=== PATIENT | male | born 1970 | race Caucasian/White ===

== ENCOUNTER 2018-03-21 06:57 | Outpatient (CLI) | payer OTHER, SELFPAY ==
[2018-03-21 08:43] LABS: TSH 7.95 uIU/mL (0.358-3.74)
== END 2018-03-21 07:17 ==
PROVIDERS: PCP Family Medicine; Visit Provider Nurse Practitioner Adult Health
DX: C04.9 Malignant neoplasm of floor of mouth, unspecified (principal); E03.9 Hypothyroidism, unspecified; R59.0 Localized enlarged lymph nodes
CPT/HCPCS: 36415; 84443

== ENCOUNTER 2018-04-15 16:57 | Emergency (ER) | payer OTHER, SELFPAY ==
[2018-04-15] VITALS (21 sets, daily range): BP systolic 119–159; BP diastolic 77–105; PULSE 75–94; RESP 1–25; TEMP 36.5; O2SAT 67–100
[2018-04-15] MEDS: Omnipaque 350 MG/ML 100 ML BTL IJ (17:27)
[2018-04-15] MEDS: Normal Saline Flush 10 ML SYR IVP (17:28)
--- NOTE | 2018-04-15 17:29 | DI.CT_ITS ---
SYMPTOMS/DIAGNOSIS: H/O THROAT CANCER, LEFT HARD NECK MASS TODAY, DIFFICULTY BREATHING CT OF THE NECK: The parotid, submandibular and thyroid glands are unremarkable. There is no evidence of abscess or adenopathy. The epiglottis appears normal. No prevertebral soft tissue swelling is seen. Degenerative changes are noted in the cervical spine. Surgical clips are seen bilaterally in the anterior neck.Scattered small calcifications are seen in the upper lobes. There are mild emphysematous changes. IMPRESSION: No evidence of abscess or mass. Postsurgical changes in the anterior neck bilaterally. CT ANGIOGRAPHY OF THE CHEST AND ABDOMEN: CT angiography was performed with multi slice acquisition and multi planar and 3D reconstruction. The exam was performed during the arterial phase. There is no evidence of aortic aneurysm or dissection. The aorta and iliac arteries are normal in diameter.The celiac trunk and mesenteric arteries are patent. The renal arteries are also unremarkable. Calcified granulomas are seen in both lungs and calcified small hilar and mediastinal lymph nodes, indicating old healed granulomatous disease.The pulmonary arteries are not opacified. The lungs are not well evaluated due to respiratory motion. There is a question of a patchy density seen in the left upper lobe, which could represent pneumonitis. No pleural or pericardial effusions are seen. The urinary bladder is quite distended, extending superiorly to the level of the umbilicus. The bladder is not fully included on the exam. The liver, spleen, gallbladder, pancreas, adrenals and kidneys are unremarkable. There is no bowel dilatation. There are no thoracic compression fractures. IMPRESSION: Limited exam due to patient motion. No evidence of aortic dissection. Patchy densities are seen in the left upper lobe, which might represent pneumonitis. The urinary bladder is quite distended to the level of the umbilicus.
[2018-04-15 17:34] LABS: Abs Immature Grans 0.01 k/cumm (0.0-0.09); Absolute Basophil Count 0.09 k/cumm (0.0-0.2); Absolute Eosinophil Count 0.14 k/cumm (0.0-0.7); Absolute Lymphocyte Count 1.48 k/cumm (1.2-3.4); Absolute Neutrophil Count 3.94 k/cumm (1.2-6.7); Basophils % 1.4; Eosinophils % 2.2; HCT 36.8 % (40.0-50.0); HGB 13.1 g/dL (13.5-17.5); Immature Grans % 0.2; Lymphocytes % 22.9; Mean Corp. HGB Concentration 35.6 g/dL (32.0-36.0); Mean Corpuscular Hemoglobin 32.4 pg (27.0-33.0); Mean Corpuscular Volume 91.1 fL (80-95); Mean Platelet Volume 8.5 fL (8.0-11.0); Monocytes % 12.4; Neutrophils % 60.9; Platelet Count 264 x1000/uL (130-400); RBC 4.04 m/cumm (4.50-6.00); RBC Distribution Width 12.1 % (11.8-14.1); White Blood Cell Count 6.46 k/cumm (4.4-10.8)
[2018-04-15 17:37] LABS: ALT 81 U/L (12-78); AST 132 U/L (15-37); Albumin 4.1 g/dL (3.4-5.0); Alkaline Phosphatase 98 U/L (46-116); Anion Gap 13.3 mmol/L (3-11); BUN 5 mg/dL (7-18); Bilirubin, Total 0.4 mg/dL (0.2-1.0); CO2 22.7 mmol/L (21.0-32.0); CREATININE 0.71 mg/dL (0.70-1.30); Calcium 8.6 mg/dL (8.5-10.1); Chloride 91 mmol/L (98-107); Glucose 95 mg/dL (70-100); Potassium 3.8 mmol/L (3.5-5.1); Sodium 127 mmol/L (136-145); Total Protein 7.7 g/dL (6.4-8.2); Troponin I 0.03 ng/mL (0.00-0.06)
[2018-04-15] MEDS: Albuterol/Ipratropium 3 ML UPD VIAL UPD (17:44)
[2018-04-15] MEDS: Normal Saline 500 ML 1000 ML IV (17:44)
--- NOTE | 2018-04-15 18:38 | DI.VRAD_ITS ---
EXAM: CT Neck With Contrast EXAM DATE/TIME: 04/15/2018 5:39 PM CLINICAL HISTORY: 48 years old, male; Signs and symptoms; Dyspnea / difficulty breathing and mass, lump, or swelling in neck; Patient HX: Throat cancer TECHNIQUE: Axial computed tomography images of the neck with intravenous contrast. Coronal and sagittal reformatted images were created and reviewed. COMPARISON: No relevant prior studies available. FINDINGS: Sinuses: Mucosal thickening the left maxillary sinus. Oropharynx: Normal. No significant tonsillar enlargement. Larynx: Normal. Normal epiglottis. Retropharyngeal space: Unremarkable retropharyngeal soft tissues. Parotid glands: Normal. Glands are normal in size. Thyroid: Normal. No enlarged or calcified nodules. Lymph nodes: Calcified and noncalcified lymph nodes within the upper mediastinum. Lungs: Calcified granuloma within the right and left upper lobes. Vasculature: The multiple areas of venous gas, likely iatrogenic. Bones/joints: Mild degenerative spondylosis of the cervical spine. Soft tissues: No neck mass. No abscess. Multiple surgical clips within the right and left neck. IMPRESSION: 1. No neck mass or abscess. 2. Evidence of prior granulomatous disease. 3. Postoperative changes within the right and left neck. Dictated and Authenticated by: Pillo Dickens MD. Ordering:WADE Valera MD
--- NOTE | 2018-04-15 18:38 | NUR.NOTE ---
Nursing Note: Administered IV Valium as ordered by MD. Administered over 4 min IV followed by flush. Patient stated he felt it and became giddy but stated it felt easier to breathe. Patient's oxygen saturations began to drop suddenly down to 68% on RA, despite maintaining good ventilation and speaking to this scribe and his . Attempted different fingers with finger sensor with same reading. Applied NC at 6L with saturations reaching 100% and MD came into room to evaluate. 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 Oxygen titrated down with MD in room, until patient able to maintain a good saturation on RA. Patient monitored on manager monitoring.
--- NOTE | 2018-04-15 18:46 | DI.VRAD_ITS ---
EXAM: CT Angiography Chest With Contrast EXAM DATE/TIME: 04/15/2018 5:14 PM CLINICAL HISTORY: 48 years old, male; Signs and symptoms; Other: Difficulty breathing TECHNIQUE: Axial computed tomographic angiography images of the chest with intravenous contrast using CT angiography protocol. Coronal and sagittal reformatted images were created and reviewed. MIP reconstructed images were created and reviewed. COMPARISON: CT Chest Without Contr 10/06/2014 9:27 AM FINDINGS: Pulmonary arteries: The pulmonary arteries are not opacified. Aorta: Aortic arterial phase imaging was performed. No aortic aneurysm or dissection. Great vessels off aortic arch: The thoracic aorta and origin of the great vessels are unremarkable. Lungs: Multifocal patchy densities within the left upper lobe (axial images 110 through 136 of series 6) are suspicious for pneumonia in the proper clinical setting. An underlying pulmonary malignancy cannot be excluded. Followup CT scan is recommended. Calcified granulomas within both lungs. Pleural space: Normal. No pneumothorax. No pleural effusion. Heart: Normal. No cardiomegaly. No pericardial effusion. Lymph nodes: Calcified and noncalcified hilar and mediastinal lymph nodes. Bones/joints: Unremarkable. No acute fracture. Soft tissues: Unremarkable. IMPRESSION: 1. Patchy densities within the left upper lobe suspicious for pneumonia in the proper clinical setting. Underlying neoplasm is not excluded. Followup CT scan is recommended to confirm resolution following appropriate medical management. 2. Evidence of prior granulomatous disease. 3. Unremarkable thoracic aorta. EXAM: CT Angiography Abdomen With Contrast EXAM DATE/TIME: 04/15/2018 5:14 PM CLINICAL HISTORY: 48 years old, male; Signs and symptoms; Other: Difficulty breathing TECHNIQUE: Axial computed tomographic angiography images of the abdomen with intravenous contrast material, including non-contrast images if performed. MIP and/or 3D reconstructed images were created and reviewed. COMPARISON: CT Chest Without Contr 10/06/2014 9:27 AM FINDINGS: Lungs: Unremarkable. No consolidation. VASCULATURE: Aorta: Mild atherosclerosis of the abdominal aorta. No aneurysm. Celiac trunk and mesenteric arteries: No occlusion or significant stenosis. Renal arteries: No occlusion or significant stenosis. ABDOMEN: Liver: Normal. No mass. Gallbladder and bile ducts: No focal hepatic lesion or intrahepatic duct dilatation. Pancreas: Normal. No ductal dilation. Spleen: Normal. No splenomegaly. Adrenals: Normal. No mass. Kidneys and ureters: Normal. No hydronephrosis. Stomach and bowel: Unremarkable. No obstruction. No mucosal thickening. Intraperitoneal space: Unremarkable. No free air. No significant fluid collection. Bones/joints: No acute fracture. No dislocation. Soft tissues: Unremarkable. Lymph nodes: Unremarkable. No enlarged lymph nodes. IMPRESSION: No acute abdominal abnormality. Dictated and Authenticated by: Pillo Dickens MD. Ordering:WADE Valera MD
--- NOTE | 2018-04-15 19:06 | ED.GENADUL_ITS ---
Discharge Plan Disposition Patient Disposition: HOME Condition: Good Discharge Details Chief Complaint: SOB Clinical Impression: Muscle spasms of neck, Acute torticollis Primary Care Provider: Toan Stanton ED Provider: Soto Manzo Home Meds and New Rx's Prescriptions: New cyclobenzaprine 10 mg tablet 10 mg PO TID Qty: 14 RF: 0 No Action lisinopril 10 mg tablet 10 mg PO DAILY Qty: 90 RF: 4 levothyroxine [Synthroid] 50 MCG tablet 50 mcg PO DAILY RF: 0 ibuprofen 200 MG tablet 200 mg PO BID Qty: 3 RF: 0 sertraline 50 MG tablet 1 tab PO DAILY Qty: 90 RF: 4 Discharge Instructions Instructions: Spasmodic Torticollis (ED) Additional Instructions: Please take the Flexeril only as needed. Please use a heating pad over your neck if your spasm returns. If you notice any worsening of your symptoms, or any new symptoms such as vomiting, diarrhea, fever, chills, shortness of breath, chest pain, numbness, weakness, or fainting , please return immediately to the emergency department for reevaluation. Please follow up with your primary care provider as soon as possible for reassessment and reevaluation. As always, it was a pleasure participating in your medical care today. Referrals: Toan Stanton MD [Primary Care Provider] - Medical Decision Making This is a 48-year-old male with a past medical history of tongue canc er, who had a subsequent glossectomy, as well as radiation, and multiple scars on his left neck. He presents today for difficulty breathing and neck tightness. Patient states that the symptoms began this morning when he awoke. He admits to tightness in the left side of his neck, worsened with movement. Physical exam demonstrates a very normal O2 saturation at 98%, no signs of oropharyngeal compromise, no signs of angioedema or significant swelling. No signs of significant swelling in the neck. No stridorous breath sounds or other abnormalities. Although the patient has the complaint of difficulty breathing and had lateral neck spasm, there is no signs of respiratory distress or airway compromise. We did check a carbon monoxide and this was a normal level. Concern for potential mass, aneurysm, or other significant neck or chest abnormality. We did get a CT angios of the chest and CT of the neck for further evaluation. No acute process is noted in the neck, no large mass, no signs of airway compromise. There are some small areas of mass versus infiltrate the lobes, however the patient states that he is aware of these, and is scheduled to have them followed up at [facility]. He denies any symptoms of fever chills or cough and shows no signs or symptoms clinically consistent with pneumonia. Patient's laboratory workup is come back relatively benign, sodium slightly low at 127, troponin is within normal limits, EKG is benign. Did give the patient a breathing treatment he had no improvement of his symptoms with this. With no clear etiology for his symptoms, I did give a trial of Valium out of concern that perhaps this is a sternocleidomastoid and neck spasm. After administration of the Valium the patient had complete resolution of his symptoms. He is able to move his neck well, had no more pain or tightness, and felt no difficulty breathing. Feel that the patient's spasm of his neck and sternocleidomastoid may have been brought on by mild dehydration and his chronic comorbidities of surgery and radiation to the area. A prolonged observation. Was enabled on the patient, and multiple repeat evaluations were performed which demonstrated continued good oxygen saturation, resolution of symptoms, and good neck movement. The patient made it very clear that he would like to leave immediately as he feels great. I do feel that it is reasonable at this time. We will give the patient Flexeril for home use. Recommend heating pads at home. We discussed red flags which to return the patient understands as well as the importance of close follow-up with his oncologist and PCP. I have extensively reviewed the treatment plan and discharge instructions with the patient and their family. I have addressed all patient concerns at this time. The patient a nd family was made aware of what symptoms to monitor for that would warrant a return to the emergency department. Discussed the plan with the patient and family, they demonstrate verbal understanding and agreement with our assessment and plan at this time. EKG 17: 05 Rate 76, intervals normal, sinus rhythm, no ST elevations or depressions, no T wave inversions. FINDINGS: Sinuses: Mucosal thickening the left maxillary sinus. Oropharynx: Normal. No significant tonsillar enlargement. Larynx: Normal. Normal epiglottis. Retropharyngeal space: Unremarkable retropharyngeal soft tissues. Parotid glands: Normal. Glands are normal in size. Thyroid: Normal. No enlarged or calcified nodules. Lymph nodes: Calcified and noncalcified lymph nodes within the upper mediastinum. Lungs: Calcified granuloma within the right and left upper lobes. Vasculature: The multiple areas of venous gas, likely iatrogenic. Bones/joints: Mild degenerative spondylosis of the cervical spine. Soft tissues: No neck mass. No abscess. Multiple surgical clips within the right and left neck. IMPRESSION: 1. No neck mass or abscess. 2. Evidence of prior granulomatous disease. 3. Postoperative changes within the right and left neck. Thank you for allowing us to participate in the care of your patient. Dictated and Authenticated by: Pillo Dickens MD FINDINGS: Pulmonary arteries: The pulmonary arteries are not opacified. Aorta: Aortic arterial phase imaging was performed. No aortic aneurysm or dissection. Great vessels off aortic arch: The thoracic aorta and origin of the great vessels are unremarkable. Lungs: Multifocal patchy densities within the left upper lobe (axial images 110 through 136 of series 6) are suspicious for pneumonia in the proper clinical setting. An underlying pulmonary malignancy cannot be excluded. Followup CT scan is recommended. Calcified granulomas within both lungs. Pleural space: Normal. No pneumothorax. No pleural effusion. Heart: Normal. No cardiomegaly. No pericardial effusion. Lymph nodes: Calcified and noncalcified hilar and mediastinal lymph nodes. Bones/joints: Unremarkable. No acute fracture. Soft tissues: Unremarkable. IMPRESSION: 1. Patchy densities within the left upper lobe suspicious for pneumonia in the proper clinical setting. Underlying neoplasm is not excluded. Followup CT scan is recommended to confirm resolution following appropriate medical management. 2. Evidence of prior granulomatous disease. 3. Unremarkable thoracic aorta. FINDINGS: Lungs: Unremarkable. No consolidation. VASCULATURE: Aorta: Mild atherosclerosis of the abdominal aorta. No aneurysm. Celiac trunk and mesenteric arteries: No occlusion or significant stenosis. Renal arteries: No occlusion or significant stenosis. ABDOMEN: Liver: Normal. No mass. Gallbladder and bile ducts: No focal hepatic lesion or intrahepatic duct dilatation. Pancreas: Normal. No ductal dilation. Spleen: Normal. No splenomegaly. Adrenals: Normal. No mass. Kidneys and ureters: Normal. No hydronephrosis. Stomach and bowel: Unremarkable. No obstruction. No mucosal thickening. Intraperitoneal space: Unremarkable. No free air. No significant fluid collection. Bones/joints: No acute fracture. No dislocation. Soft tissues: Unremarkable. Lymph nodes: Unremarkable. No enlarged lymph nodes. IMPRESSION: No acute abdominal abnormality. Thank you for allowing us to participate in the care of your patient. Dictated and Authenticated by: Pillo Dickens MD [facility] General Date/Time Provider Initiated Documentation: 04/15/18 17:12 . HPI Narrative: This is a 48-year-old male with a past medical history complicated by lung cancer, with subsequent glossectomy, and multiple surgeries on his neck including radiation and chemotherapy that occurred greater than a year ago. He presents today for complaint of tightness in his neck, cramp in his left neck, and sensation of difficulty breathing. Patient states that symptoms began when he woke up this morning. If continued throughout the day, over the last hour he feels like it is getting worse. It is worse when he tries to stretch his neck. Improved by nothing. He denies any associated chest pain, headache, numbness tingling or weakness. He denies any difficulty swallowing, controlling his secretions, he denies any vomiting or diarrhea. He denies any other complaints. He denies any cardiac history, he denies any other associated complaints. Related Data Home Medications Medication Instructions Recorded Confirmed ibuprofen 200 mg PO BID #3 09/16/16 04/15/18 levothyroxine [Synthroid] 50 mcg PO DAILY tab-cap 09/16/16 04/15/18 sertraline 1 tab PO DAILY #90 tab-cap 09/19/17 04/15/18 lisinopril 10 mg tablet 10 mg PO DAILY #90 tab 04/12/18 04/15/18 cyclobenzaprine 10 mg PO TID #14 tab 04/15/18 Previous Rx's Medication Instructions Recorded sertraline 1 tab PO DAILY #90 tab-cap 09/19/17 lisinopril 10 mg tablet 10 mg PO DAILY #90 tab 04/12/18 cyclobenzaprine 10 mg PO TID #14 tab 04/15/18 Allergies Allergy/AdvReac Type Severity Reaction Status Date / Time No Known Allergies Allergy Verified 04/15/18 17:09 General Stated Complaint: SOB JENSEN: 2 Review of Systems Review of Systems All systems reviewed & are unremarkable except as noted in HPI and below PFSH Surgical History Appendectomy (~1980) Family History Mother No problems noted. Father No problems noted. Sister Personal history of malignant neoplasm Sister Personal history of malignant neoplasm Brother No problems noted. Brother No problems noted. Grandfather Heart disease Grandfather No problems noted. Grandmother No problems noted. Grandmother No problems noted. Exam Narrative Exam Narrative: 1.Const: Well-nourished, Well-developed, appearing stated age 2.Eyes: PERRL, no conjunctival injection, and symmetrical lids. 3.ENT: Patient demonstrates notable abnormalities of his tongue secondary to glossectomy. Notable chronic scars on his left neck. Palpation of his left neck demonstrate notable spasm intense sternocleidomastoid and lateral neck musculature. No signs of oral/parapharyngeal compromise, no evidence of hyper secretions, angioedema, uvular deviation, or other significant abnormality. 4.CVS: +S1/S2, No murmurs or gallops. Peripheral pulses 2+ and equal in all extremities. Brisk capillary refill in all extremities. 5.RESP: Unlabored respiratory effort. Clear to auscultation bilaterally. No wheezes rales or rhonchi 6.GI: Soft, Nontender/Nondistended, No hepatosplenomegaly. No guarding or rebound. 7.MSK: Normocephalic/Atraumatic, Extremities w/o deformity or ttp No cyanosis or clubbing, Normal movement of all extremities 8.Skin: Warm, Dry. No rashes or lesions. 9.Neuro: orthopedic physician assistant II-XII grossly intact. Sensation grossly intact, no focal neuro logic deficits. 10.Psych: (AAO) x3. Appropriate mood and affect Course Vital Signs Temperature 36.5 C 04/15/18 17:07 Pulse 81 04/15/18 17:07 Respiratory Rate 18 04/15/18 17:07 Blood Pressure 147/95 H 04/15/18 17:07 Pulse Oximetry 99 04/15/18 17:07 Temperature 36.5 C 04/15/18 17:07 Temperature Source Skin 04/15/18 17:07 Pulse 81 04/15/18 17:07 Respiratory Rate 18 04/15/18 17:07 Blood Pressure 147/95 H 04/15/18 17:07 Pulse Oximetry 99 04/15/18 17:07 Oxygen Delivery Method Room Air 04/15/18 17:07 Oxygen Flow Rate 0 04/15/18 17:07
--- NOTE | 2018-04-15 19:11 | NUR.NOTE ---
Nursing Note: Pt ambulated with this nurse to the ED rear door and back, RA saturation post ambulation 95%. Alert, oriented, no SOB noted or reported.
== END 2018-04-15 19:30 | disposition home or self-care (01) ==
PROVIDERS: Emergency Provider Student in an Organized Health Care Education/Training Program; PCP Family Medicine
DX: M62.838 Other muscle spasm (principal); M43.6 Torticollis; F17.210 Nicotine dependence, cigarettes, uncomplicated
CPT/HCPCS: 70491; 71275; 80053; 93005; 94640; 96361; 96374; 99285; 84484; 85025; 93010; J3490; J7620

== ENCOUNTER 2018-05-28 14:39 | Outpatient (CLI) | payer OTHER, SELFPAY ==
[2018-05-28 15:58] LABS: CREATININE 0.86 mg/dL (0.70-1.30); TSH 3.45 uIU/mL (0.358-3.74)
== END 2018-05-28 14:59 ==
PROVIDERS: PCP Family Medicine; Visit Provider Nurse Practitioner Adult Health
DX: R59.0 Localized enlarged lymph nodes (principal); C04.9 Malignant neoplasm of floor of mouth, unspecified; E03.9 Hypothyroidism, unspecified; R91.8 Other nonspecific abnormal finding of lung field; E03.4 Atrophy of thyroid (acquired)
CPT/HCPCS: 36415; 82565; 84443

== ENCOUNTER 2018-06-13 00:19 | Outpatient (CLI) | payer OTHER, SELFPAY ==
--- NOTE | 2018-05-28 15:00 | DI.CT_ITS ---
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 When compared with the previous examination, again noted are pulmonary findings consistent with central lobular emphysema. Again noted are multiple calcified and noncalcified pulmonary nodules, which appear stable. There is no evidence of a pleural effusion or pericardial effusion and the heart is within normal limits in size. Calcified hilar and mediastinal lymph nodes are again seen. A 1.7 cm right partially calcified paratracheal node is unchanged. SUMMARY: No significant interval change when compared with the prior study. Again noted are bilateral lung nodules, some of which are calcified and there are calcified hilar and mediastinal lymph nodes, these findings consistent with old healed granulomatous disease. There is nothing to suggest metastatic disease.
[2018-05-28] MEDS: Omnipaque 350 MG/ML 100 ML BTL IJ (15:56)
== END 2018-06-13 00:39 ==
PROVIDERS: PCP Family Medicine; Visit Provider Nurse Practitioner Adult Health
DX: C04.9 Malignant neoplasm of floor of mouth, unspecified (principal); R03.0 Elevated blood-pressure reading, without diagnosis of hypertension; Z87.891 Personal history of nicotine dependence; R91.8 Other nonspecific abnormal finding of lung field; J43.9 Emphysema, unspecified; J84.10 Pulmonary fibrosis, unspecified
CPT/HCPCS: 71260; J3490

== ENCOUNTER 2018-12-05 12:21 | Outpatient (CLI) | payer OTHER, SELFPAY ==
[2018-12-05 13:04] LABS: TSH 4.98 uIU/mL (0.36-3.74)
== END 2018-12-05 12:41 ==
PROVIDERS: PCP Family Medicine; Visit Provider Nurse Practitioner Adult Health
DX: C04.9 Malignant neoplasm of floor of mouth, unspecified (principal); E03.9 Hypothyroidism, unspecified; R59.0 Localized enlarged lymph nodes; R91.8 Other nonspecific abnormal finding of lung field
CPT/HCPCS: 36415; 84443

== ENCOUNTER 2020-03-12 02:35 | Outpatient (CLI) | payer OTHER, SELFPAY ==
[2020-03-13 13:40] LABS: COVID-19 RT-PCR UVMMC Result Negative (Negative)
== END 2020-03-12 02:55 ==
PROVIDERS: PCP Family Medicine; Visit Provider Surgery
DX: Z20.828 Contact with and (suspected) exposure to other viral communicable diseases (principal); Z01.818 Encounter for other preprocedural examination
CPT/HCPCS: U0003

== ENCOUNTER 2020-03-16 07:16 | Day surgery (SDC) | payer OTHER, SELFPAY ==
--- NOTE | 2020-03-16 06:47 | COLE_ITS ---
Date of service: 03/16/20 Time of Service: 08: Colonoscopy Report Date of procedure: 03/16/20 Pre-op diagnosis general: Colon Cancer Screening Post-op diagnosis procedure note: same Procedure: Colonoscopy Surgeon: Sully Awad Anesthesia proc note operative: other (General/ASA 2/Bc Tijerina, ROSY) Estimated blood loss (mL): 0 Pathology: none sent Complications: None Disposition: same day Indications: The patient is here for Colonoscopy pre-op. He has no family history of colon cancer. He has not had any bowel habit changes. -Discussed colonoscopy bowel prep as well as the procedure. Discussed possible complications of the procedure to include bleeding, pain, perforation, missed small lesion/polyp, sore throat, aspiration and adverse reaction to the medications. Questions were answered to patient?s satisfaction. No guarantees were implied or given. Prep: Miralax/Dulcolax Procedure Start Time: : Procedure End Time: :43 Retraction Time: 12 minutes Findings: Normal colon Procedure Description: After informed consent was obtained the patient was taken to the procedure room and placed in a left decubitous position. Monitors were applied and a time out was done. The patients name, date of , procedur e, allergies to medications and metal in their body was reviewed. The patient was then sedated. Once sedated and comfortable a rectal exam was done. External exam revealed an external hemorrhoidal skin tag. Internal exam revealed a normal sphincter tone and no palpable masses. The prostate felt smooth and slightly enlarged. The scope was then introduced and retro-flexed. No internal hemorrhoids, polyps or masses were identified on retro-flexion. The scope was then advanced to the cecum without difficulty. The ileocecal valve and appendiceal orifice were identified. The prep was good. The scope was then slowly retracted over 12 minutes back into the rectum. There were no polyps. There was no diverticulosis noted. The scope was removed and the patient was woken up and taken back to Same day surgery in stable condition. The patient tolerated the procedure well and there were no immediate complications. Follow up: The patient should follow up in 10 years unless they develop changes in bowel habits or other new gastrointestinal complaints.
--- NOTE | 2020-03-16 06:47 | W.PM.DSUDISC ---
Discharge Plan Disposition Patient Disposition: HOME Condition: Good Discharge Details Reason For Visit: Colon Cancer Screening Attending Provider: Sully Awad Primary Care Provider: Blaze Ratliff Home Meds and New Rx's Prescriptions: Continued levothyroxine [Synthroid] 50 mcg tablet 50 mcg PO DAILY Qty: 90 RF: 4 lisinopril 10 mg tablet 10 mg PO DAILY Qty: 90 RF: 4 chlorthalidone 25 mg tablet 25 mg PO DAILY Qty: 90 RF: 4 ibuprofen 200 MG tablet 200 mg PO BID Qty: 3 RF: 0 Discharge Instructions Additional Instructions: Findings: Normal colonoscopy Follow up: 10 years Please call if you develop: fevers >101.5 Nausea or Vomiting Abdominal pain that is not transient DAY SURGERY UNIT POST ENDOSCOPY INSTRUCTIONS 1. Because there will be medication in your system for the next 24 hours, you may feel a little sleepy. Your coordination will be affected. Therefore: a. Do not drive or operate dangerous equipment for 24 hours. b. Do not drink alcohol beverages for 24 hours (not even beer). c. Plan to go home and rest for the day. 2. Generally there are no restrictions on your activity after a day or so has gone by, but you may feel a bit fatigued for a few days. 3 After you arrive home you may have a light meal and return to a normal diet as you can tolerate it without feeling sick to your stomach. 4. After surgery, you may feel pain or discomfort. This should be only transient, but if it persists please contact your doctor. 5. If there are any questions regarding the findings of your procedure, please feel free to contact your doctor. 6. If you are unable to contact your doctor with a problem, contact the hospital at [phone]. 7. Continue all your regular medications unless directed otherwise. I understand the above instructions and have no questions. Signature of Patient or Responsible Adult Escort Date/Time Name of Responsible Adult Escort Signature of Nurse Date/Time Activity:: Activity as Tolerated Diet:: As Tolerated Discharge Orders Discharge Orders: Discharge Order (Routine); Ordered 03/16/20 Ordered By: Sully Awad
[2020-03-16 07:37] VITALS: BP 141/101; PULSE 125; RESP 16; TEMP 36.5; O2SAT 99
[2020-03-16] MEDS: Lactated Ringers 1,000 ML 80 ML IV (08:04)
[2020-03-16 09:26] VITALS: BP 128/98; PULSE 96; RESP 16; TEMP 37; O2SAT 100
== END 2020-03-16 09:48 | disposition home or self-care (01) ==
LOC: SUR 07:16
PROVIDERS: PCP Family Medicine; Visit Provider Surgery
PROC: 0DJD8ZZ Inspection of Lower Intestinal Tract, Via Natural or Artificial Opening Endoscopic (ICD-10-PCS; CPT 45378; principal; 2020-03-16 08:30)
DX: Z12.11 Encounter for screening for malignant neoplasm of colon (principal)
CPT/HCPCS: 45378

== ENCOUNTER 2021-03-01 02:12 | Outpatient (CLI) | payer OTHER, SELFPAY ==
[2021-03-01 08:26] LABS: Anion Gap 10.5 mmol/L (3-11); BUN 9 mg/dL (7-18); CO2 29.5 mmol/L (21.0-32.0); CREATININE 1.2 mg/dL (0.70-1.30); Calcium 9.3 mg/dL (8.5-10.1); Calculated LDL 67 mg/dL (<100); Chloride 95 mmol/L (98-107); Cholesterol 180 mg/dL (<200); Glucose 79 mg/dL (74-106); HDL Cholesterol 102 mg/dL (40-60); Potassium 3.9 mmol/L (3.5-5.1); Sodium 135 mmol/L (136-145); TSH (W/Ref FT4) 32.41 uIU/mL (0.36-3.74); Triglyceride 55 mg/dL (<150)
[2021-03-01 08:46] LABS: FREE T4 0.67 ng/dL (0.76-1.46)
[2021-03-01 18:20] LABS: PSA, Screening 3.7 ng/mL (0.0-3.5)
[2021-03-02 10:11] LABS: Hepatitis C Ab w Rflx HCV PCR Negative (Negative)
== END 2021-03-01 02:13 | disposition home or self-care (01) ==
LOC: LBO 02:12
PROVIDERS: PCP Family Medicine; Visit Provider Family Medicine
DX: I10 Essential (primary) hypertension (principal); Z00.00 Encounter for general adult medical examination without abnormal findings; Z12.5 Encounter for screening for malignant neoplasm of prostate; E03.9 Hypothyroidism, unspecified; Z11.59 Encounter for screening for other viral diseases
CPT/HCPCS: 36415; 80048; 80061; 84153; 86803; 84439; 84443

== ENCOUNTER 2021-10-08 00:11 | Outpatient (CLI) | payer OTHER, SELFPAY ==
[2021-10-08 14:32] LABS: Abs Immature Grans 0.03 10^3/uL (0.0-0.06); Absolute Basophil Count 0.06 10^3/uL (0.0-0.2); Absolute Eosinophil Count 0.16 10^3/uL (0.0-0.7); Absolute Monocyte Count 0.73 10^3/uL (0.1-0.8); Absolute Neutrophil Count 2.71 10^3/uL (1.2-6.7); Basophils % 1.4; Eosinophils % 3.6; HCT 34.9 % (40.0-50.0); HGB 12.5 g/dL (13.5-17.5); Immature Grans % 0.7; Lymphocytes % 15.9; MCH 33.9 pg (27.0-33.0); MCHC 35.8 % (32.0-36.0); MCV 95 fL (80-95); MPV 8.2 fL (8.0-11.0); Monocytes % 16.6; Neutrophils % 61.8; Platelet Count 285 10^3/uL (130-400); RBC 3.69 10^6/uL (4.36-5.78); RDW 12.9 % (11.8-14.1); RDW-SD 44.5 fL; WBC 4.39 10^3/uL (4.4-10.8)
[2021-10-08 14:42] LABS: Hemoglobin A1C 5.1 % (<5.7)
[2021-10-08 15:12] LABS: ALT 32 U/L (16-63); AST 44 U/L (15-37); Albumin 4.3 g/dL (3.4-5.0); Alkaline Phosphatase 89 U/L (46-116); Anion Gap 11.6 mmol/L (3-11); BUN 10 mg/dL (7-18); Bilirubin, Total 0.5 mg/dL (0.2-1.0); CO2 29.4 mmol/L (21.0-32.0); CREATININE 1.2 mg/dL (0.70-1.30); Calcium 9.3 mg/dL (8.5-10.1); Chloride 85 mmol/L (98-107); Glucose 96 mg/dL (74-106); Potassium 3.2 mmol/L (3.5-5.1); Sodium 126 mmol/L (136-145); TSH (W/Ref FT4) 8.47 uIU/mL (0.36-3.74); Total Protein 8.4 g/dL (6.4-8.2); Vitamin B12 284 pg/mL (193-986)
[2021-10-08 15:21] LABS: Bilirubin Negative (Negative); Blood Negative (Negative); Clarity Clear (Clear); Glucose Negative (Negative); Ketones Negative (Negative); Leukocyte Esterase Negative (Negative); Nitrite Negative (Negative); Specific Gravity 1.015 (1.005-1.025); Urobilinogen 0.2 EU/dL (Up TO 0.2)
[2021-10-08] MEDS: Omnipaque 350 MG/ML 100 ML BTL IJ (15:21)
--- NOTE | 2021-10-08 15:21 | DI.CT_ITS ---
Exam(s) CT NECK W EXAM: CT NECK W CLINICAL HISTORY: RADIONECROSIS,L59.8,Y84.2,S/P SURGERY AND RECONSTRUCTION AND RADIATION. TECHNIQUE: Imaging Protocol: Axial CT angiography was performed with multi-slice acquisition and mu lti-planar and/or 3D reconstructions. CONTRAST MATERIAL: Intravenous: Omnipaque 350 Contrast volume:100 mL COMPARISON: CT CT neck w from 04/15/2018 FINDINGS: VISUALIZED PARANASAL SINUSES: There is mild mucosal thickening in the floor of the partially visualiz ed left maxillary sinus. The sphenoid sinuses are clear as are the ethmoidal air cells. Mastoid air cells are clear. NASOPHARYNX: Unremarkable. OROPHARYNX: Slightly thickened uvula of questionable significance. No other masses evident. ORODENTAL: Significant area of lucency in the anterior mandible with loss of the central and left kianna th. Also some bone dehiscence of the anterior cortex of the anterior mandible at this level. No obv ious abscess at this level. RETROPHARYNGEAL SPACE: Not swollen. No masses. HYPOPHARYNX: Free edge of the epiglottis and valleculae appear unremarkable. Aryepiglottic folds unr emarkable. VOCAL CORDS AND SUBGLOTTIC AIRWAY: Unremarkable although there appears to be some mucus on the associate brand manager ior right wall of the trachea. THYROID GLAND: Normal size and no obvious nodules. LYMPH NODES: There is no prominent lymphadenopathy in the neck. Small lymph nodes are noted in the s upraclavicular regions bilaterally. SALIVARY GLANDS: The submandibular glands are surgically absent. No abnormal masses in these regions . No masses nor calcifications noted in the parotid glands. VASCULAR: Heavily calcified plaque in the proximal left internal carotid artery with approximately 40 percent stenosis at this level. No calcified plaque at the right carotid bifurcation and proximal r ight ICA and no significant stenosis. Right internal jugular vein is patent. Left internal jugular vein is thin in the upper neck but does not appear thrombosed. OSSEOUS: No lytic nor blastic osseous lesions. Cervical vertebrae appear unremarkable. No significa nt disc space narrowing. No listhesis. No fractures. IMPRESSION: 1. Postsurgical changes as described above but no evidence of concerning mass nor new lymphadenopathy in the neck. Submandibular glands are again noted to have been resected. 2. Significant lucency around central and left central teeth in the anterior mandible with bone loss at this level including dehiscence of the anterior cortex of the mandible at this level. 3. Slight thickening of the uvula at level the oropharynx. This can be studied visually. RADIATION DOSE DELIVERED: 417.87mGy.cm Total DLP DATA REPOSITORY: All CT scans at this facility are submitted to the National Radiology Data Registry (NRDR) Dose Index Registry (DIR) with the [employer] (ACR). RADIATION OPTIMIZATION: All CT scans at this facility use at least one of these dose optimization te chniques: automated exposure control; mA and/or kV adjustment per patient size (includes targeted exa ms where dose is matched to clinical indication); or iterative reconstruction.
[2021-10-08] MEDS: Normal Saline Flush 10 ML SYR IVP (15:22)
[2021-10-08 15:33] LABS: FREE T4 0.88 ng/dL (0.76-1.46)
[2021-10-08 22:31] LABS: PSA, Diagnostic 2.7 ng/mL (<=3.5)
[2021-10-11 13:24] LABS: Albumin 59.9 % (55.8-66.1); Albumin g/dL 4.7 g/dL (3.6-5.2); Total Protein 7.8 g/dL (6.3-8.2)
== END 2021-10-08 00:31 ==
LOC: DI 00:11
PROVIDERS: Psychiatry & Neurology Neurology; PCP Family Medicine; Visit Provider Otolaryngology Otolaryngology/Facial Plastic Surgery
DX: I10 Essential (primary) hypertension (principal); Z00.00 Encounter for general adult medical examination without abnormal findings; R20.2 Paresthesia of skin; R97.20 Elevated prostate specific antigen [PSA]; E03.9 Hypothyroidism, unspecified; G62.9 Polyneuropathy, unspecified; R73.9 Hyperglycemia, unspecified; L59.8 Other specified disorders of the skin and subcutaneous tissue related to radiation; Y84.2 Radiological procedure and radiotherapy as the cause of abnormal reaction of the patient, or of later complication, without mention of misadventure at the time of the procedure; Z90.89 Acquired absence of other organs; M26.39 Other anomalies of tooth position of fully erupted tooth or teeth; K13.79 Other lesions of oral mucosa
CPT/HCPCS: 70491; 80053; 81003; 82607; 83036; 84153; 84165; 84439; 84443; 85025; J3490

== ENCOUNTER 2021-12-15 09:15 | Day surgery (SDC) | payer OTHER, SELFPAY ==
--- NOTE | 2021-12-15 07:47 | PDOC.DSDIS_ITS ---
Date of service: 12/15/21 Time of Service: 12:31 Discharge Plan Disposition Patient Disposition: HOME Condition: Good Discharge Details Reason For Visit: Right Middle Finger Trigger Release and Right ECTR Attending Provider: Cali Dominguez Primary Care Provider: Maritza Kang Home Meds and New Rx's Prescriptions: New acetaminophen 500 mg capsule 1,000 mg PO Q8H PRN PRNQty: 20 0RF hydrocodone-acetaminophen 5-325 mg tablet 1 tab PO Q6H PRNQty: 5 0RF ibuprofen 600 mg tablet 600 mg PO TID Qty: 20 0RF Continued ibuprofen 200 MG tablet 200 mg PO BID Qty: 3 levothyroxine [Synthroid] 50 mcg tablet 50 mcg PO DAILY Qty: 90 0RF lisinopril 10 mg tablet 10 mg PO DAILY Qty: 90 3RF Discharge Instructions Stand Alone Forms: [place] C. Tunnel Release, [place] T. Finger Release Referrals: Cali Dominguez MD [ [facility] STAFF PHYSICIAN] - Activity:: Activity as Tolerated Remove Dressings/Wound Care:: 72 hours Shower/Bathe:: 72 hours Diet:: As Tolerated Discharge Orders Discharge Orders: Discharge Order (Routine); Ordered 12/15/21 Ordered By: Nichole Subramanian DS: Diagnosis Discharge Diagnosis (1) Carpal tunnel syndrome of right wrist: Status: Acute (2) Trigger finger, right middle finger: Status: Acute
[2021-12-15 09:52] VITALS: BP 144/118; PULSE 118; RESP 18; TEMP 35.9; O2SAT 98
[2021-12-15] MEDS: Lactated Ringers 1,000 ML 80 ML IV (10:03)
--- NOTE | 2021-12-15 10:53 | W.ANESPRE ---
General Info Date of Service Date Performed: 12/15/21 Height: 5 ft 1 in Weight: 66.8 kg Body Mass Index (BMI): 27.8 Surgical Procedure: Operation Date: 12/15/21 12:40 Proposed Procedure Side Surgeon p Wrist ECTR Right Cali Dominguez MD s Trigger Finger Release RMF Right Cali Dominguez MD Meds Allergies and Home Medications Allergies Allergy/AdvReac Type Severity Reaction Status Date / Time No Known Allergies Allergy Verified 11/15/21 08:39 Home Medication Medication Instructions Recorded ibuprofen 200 mg tablet 200 mg PO BID ##3 09/16/16 levothyroxine 50 mcg tablet 50 mcg PO DAILY #90 tab-caps 09/20/21 (Synthroid) lisinopril 10 mg tablet 10 mg PO DAILY #90 tabs 10/25/21 acetaminophen 500 mg capsule 1,000 mg PO Q8H PRN PRN #20 caps 12/15/21 hydrocodone 5 mg-acetaminophen 325 1 tab PO Q6H PRN #5 tabs 12/15/21 mg tablet ibuprofen 600 mg tablet 600 mg PO TID #20 tabs 12/15/21 Current Visit Medications: Current Medications Generic Name Dose Route Start Last Admin Trade Name Freq PRN Reason Stop Dose Admin Acetaminophen 650 mg 12/15/21 07:46 Acetaminophen 325 Mg Tab PO Q4H PRN PRN Ringer's Solution 1,000 mls @ 80 mls/hr 12/15/21 06:00 12/15/21 10:03 IV 01/13/22 23:59 80 mls/hr INFUSION OLYA Administration Cefazolin Sodium/Dextrose 2 gm in 50 mls @ 100 mls/hr 12/15/21 06:00 Ancef Duplex IVPB 01/13/22 23:59 PREOP OLYA Ondansetron HCl 4 mg/ Sodium 52 mls @ 200 mls/hr 12/15/21 07:46 Chloride IVPB Q6H PRN PRN IV Miscellaneous Supplies 1 each 12/15/21 06:00 Iv Access IV 01/13/22 23:59 DIRECTED OLYA Oxycodone HCl 5 mg 12/15/21 07:46 Oxycodone 5 Mg Tab PO Q3H PRN PRN Pain Sodium Chloride 0 ml 12/15/21 06:00 Normal Saline Flush 10 Ml Syr IV 01/13/22 23:59 PRN PRN Sodium Chloride 0 ml 12/15/21 06:00 Normal Saline 10 Ml Vial IJ 01/13/22 23:59 DIRECTED PRN Sterile Water 0 ml 12/15/21 06:00 Water,Injection,Sterile 10 Ml Vial IJ 01/13/22 23:59 DIRECTED PRN PFSH Active Problems Active Problems: Problem Status Onset Code Alcohol abuse 06/25/13 F10.10 Primary insomnia 10/04/16 F51.01 Essential hypertension I10 Hypothyroid E03.9 Sensorineural hearing loss (SNHL) of both ears H90.3 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 Elevated prostate specific antigen (PSA) R97.20 Trigger finger, right middle finger M65.331 Peripheral neuropathy G62.9 Carpal tunnel syndrome of left wrist G56.02 Carpal tunnel syndrome of right wrist G56.01 Ulnar neuropathy at elbow of left upper extremity G56.22 Ulnar neuropathy at elbow of right upper extremity G56.21 Vitamin B12 deficiency E53.8 Medical History Medical History (Updated 12/15/21 @ 09:50 by Leyla Resendiz RN) Family history of breast cancer in female Hypertension 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 Status post appendectomy Tobacco Smoking/Tobacco Use Status: Former Tobacco Use Smokeless tobacco user: snuff Passive smoking exposure: Yes Second hand exposure: Yes Alcohol Alcohol Intake: current Alcohol intake frequency: 3 or more drinks per day (4 drinks per day per patient to ANES provider) Alcohol type: beer Counseling provided: provider counseling Substance Use Substance use: Never Substance use type: does not use Details: Last ETOH 12/15/21 Vital Signs and Lab Results Vital Signs Most Recent Vital Signs in EMR: Most Recent Vital Signs Temp Pulse Resp BP Pulse Ox 35.9 C L 118 H 18 144/118 H 98 12/15/21 09:52 12/15/21 09:52 12/15/21 09:52 12/15/21 09:52 12/15/21 09:52 Lab Results Blood Type / Crossmatch: No Data to Display Complete Blood Count: No Data to Display Complete Metabolic Panel: No Data to Display Liver Function Panel: No Data to Display Coagulation Panel: No Data to Display Cardiac Panel: No Data to Display Arterial Blood Gas: No Data to Display Venous Blood Gas: No Data to Display Pancreas Panel: No Data to Display Thyroid Panel: No Data to Display Infectious Disease: No Data to Display Blood Cultures: No Data to Display Toxicology Panel: No Data to Display Anesthesia Assessment and Plan Anesthesia History Personal History: No History of Anesthesia Complications and Awareness Under Anesthesia Family History: No Family History of Anesthesia Complications Exercise Tolerance Exercise Tolerance: Metabolic Equivalents>4 Pertinent Negatives Pertinent Negatives: No Symptoms of GERD, No Major Cardiovascular Symptoms or Complaints, No Major Pulmonary Symptoms or Complaints and No History of CVA/TIA Cardiac & Pulmonary Exam Cardiac Exam: Normal S1/S2 Heart Sounds Pulmonary Exam: Clear Bilateral Breath Sounds Implantable Cardiac Device Does patient have a Pacemaker or an ICD?: No Airway Exam Known Difficult Airway: No Mallampati Class: 2 Mouth Opening: Normal (> 3cm) Thyromental Distance: Less than 3 cm Neck Range of Motion: Full ROM Neck Circumference: Normal Teeth Condition: Generalized Poor Dentition and Loose or Chipped Tooth Numberin. Missing 2. Loose Airway Comments: Significant radiation to the head and neck with resection of tongue. Patient demonstated good cervical flexion and extension, limited tongue ROM. MP2. Patient notes losing teeth to the lower jaw. one molar loose at this time. ASA Classification ASA Score: ASA 3 Emergency Case?: No NPO Status NPO Status: NPO Clears >2 hours, Solids >8 hours Anesthesia Plan Resuscitation Status: Full Code Anesthesia Technique: General Anesthesia Airway Planned: Natural Airway Monitors Used: Standard Monitors
--- NOTE | 2021-12-15 11:26 | HPE_ITS ---
Assessment and Plan Assessment and plan (1) Trigger finger, right middle finger: Status: Acute (2) Carpal tunnel syndrome of right wrist: Status: Acute (3) Carpal tunnel syndrome of left wrist: Status: Acute Assessment and plan: Faiza a 51-year-old who is here today for bilateral carpal tunnel syndrome and a right middle finger trigger finger. The plan today is for a right carpal tunnel release and a right middle finger trigger finger release. He will come back in 2 weeks for the left side. I reviewed carpal tunnel and trigger finger release with him. I discussed the risk of the procedure to include bleeding, infection, pain, stiffness, recurrence, incomplete release, damage nerves and vessels, damage to muscle and tendons. Despite these risk, he elects to proceed. History of Present Illness Narrative: Silvano is a 51-year-old who has severe carpal tunnel syndrome of both upper extremities. He also has recurrent trigger finger of the right middle finger. Please see the previous office note for complete detailed history. He has failed other nonoperative options and is here today for release of the carpal tunnel on the right side with middle finger trigger release. He is planning to have the left carpal tunnel performed in a few weeks. He denies any recent sick contacts. He denies chest pain or shortness of breath. He has no fever no chills. Review of Systems All systems reviewed & are unremarkable except as noted in HPI and below PFSH All Active Problems Alcohol abuse (Chronic 06/25/13) 6 beers / night x 30 years. Primary insomnia (Chronic 10/04/16) no improvement with trazodone, ambien. 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 Status post appendectomy Family History Father , 87 Bone cancer Sister Personal history of malignant neoplasm BREAST Sister Personal history of malignant neoplasm BREAST Grandfather Heart disease Social History Smoking/Tobacco Use Status: Former Tobacco Use tobacco type: cigarettes and smokeless tobacco Quit Date: 02/13/13 Pack-years: 10 Smokeless tobacco user: snuff Second Hand Exposure: Yes Smoking risk assessment performed?: Yes Alcohol Intake: current Alcohol Intake frequency: 3 or more drinks per day (4 drinks per day per patient to ANES provider) Alcohol type: beer Counseling provided: provider counseling Drug use: Never Substance use type: does not use Details: Last ETOH 12/15/21 Household members: spouse Number of Children: 3 number of grandchildren: 4 Communication Needs: Hard of Hearing and Corrective Lenses Education Level: high school 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 Sexually active: Yes Do you think of yourself as: straight/heterosexual Current gender identity: male What is your relationship status?: How often do you talk on the phone with friends or family?: three or more times per week How often do you get together with friends or relatives?: three or more times per week How often do you attend holiness or church services?: 4 or more times per year Do you belong to any clubs or organized social groups?: no Panel score (0-1 are the most socially isolated patients): 3 What type of physical activity do you participate in: none Francine/Rastafarian: Anabaptist Seatbelt use: always Helmet use: Yes Helmet use: always Drive intox or ride w/intox inventory associate and driver: No Do you feel safe at home: Yes Do you feel safe in your relationship?: Yes Additional Social history: Enjoys playing music, using 4[employer] Meds Allergies and Home Medications Allergies Allergy/AdvReac Type Severity Reaction Status Date / Time No Known Allergies Allergy Verified 11/15/21 08:39 Home Medications Medication Instructions Recorded Confirmed Type ibuprofen 200 mg tablet 200 mg PO BID ##3 09/16/16 12/15/21 History levothyroxine 50 mcg tablet 50 mcg PO DAILY #90 tab-caps 09/20/21 12/15/21 Rx (Synthroid) lisinopril 10 mg tablet 10 mg PO DAILY #90 tabs 10/25/21 12/15/21 Rx acetaminophen 500 mg capsule 1,000 mg PO Q8H PRN PRN #20 caps 12/15/21 Rx hydrocodone 5 mg-acetaminophen 325 1 tab PO Q6H PRN #5 tabs 12/15/21 Rx mg tablet ibuprofen 600 mg tablet 600 mg PO TID #20 tabs 12/15/21 Rx Exam Resp Effort & Inspection: normal respiratory effort Auscultation: clear to auscultation bilaterally Cardio Rate: regular rate Rhythm: regular rhythm Results Last Vital Signs Temp 35.9 C L 12/15/21 09:52 Pulse 118 H 12/15/21 09:52 Resp 18 12/15/21 09:52 BP 144/118 H 12/15/21 09:52 Pulse Ox 98 12/15/21 09:52
[2021-12-15 11:29] VITALS: BMI 27.8
[2021-12-15] MEDS: ceFAZolin 2 GM/50 ML BAG IVPB (11:44)
[2021-12-15 12:10] VITALS: BP 125/76; PULSE 110; RESP 27; TEMP 36.4; O2SAT 98
[2021-12-15 12:39] VITALS: BP 138/93; PULSE 104; RESP 16; TEMP 36.7; O2SAT 97
--- NOTE | 2021-12-15 12:58 | W.ANESPOSTOP ---
Postoperative Evaluation Date, Time and Location Date Performed: 12/15/21 Time Performed: 12:58 Patient Location: Day Surgery Unit Vital Signs Most Recent Imported Vital Signs: Most Recent Vital Signs Temp Pulse Resp BP Pulse Ox 36.7 C 104 H 16 138/93 H 97 12/15/21 12:39 12/15/21 12:39 12/15/21 12:39 12/15/21 12:39 12/15/21 12:39 Pain Score Most Recent Pain Score: Most Recent Pain Score Pain Level 0 12/15/21 12:39 Assessment Mental Status: Awake (Alert & Oriented to Patient Baseline) Airway and Respiratory Function: Patent airway with normal (patient baseline) respiratory exam Cardiovascular Function: Hemodynamically Stable Hydration Status: Adequately Hydrated Nausea & Vomiting: No Nausea or Vomiting Pain: Pt. Denies Any Pain Peripheral Nerve Block: Patient did not receive a nerve block
--- NOTE | 2021-12-15 17:54 | ROE_ITS ---
Date of service: 12/15/21 Time of Service: 12:20 Operative Note Operative Note DATE OF PROCEDURE: 12/15/21 PRE-OP DIAGNOSIS: Right Carpal Tunnel Syndrome and Right Middle Finger Trigger Finger POST-OP DIAGNOSIS: same PROCEDURE: Right Endoscopic Carpal Tunnel Release and Right Middle Finger Trigger Relase SURGEON: Cali Dominguez ANESTHESIA TYPE: General:No Airway Refer to Anesthesia Record ESTIMATED BLOOD LOSS: 0 PATHOLOGY: none sent TOURNIQUET TIME: 10 COMPLICATIONS: None Patient was transported to: same day Patient's condition: stable Indications: I have seen Silvano in clinic for symptoms of carpal tunnel syndrome. The numbness, tingling, and pain limited function. Clinical exam findings with nerve conduction tests confirmed the diagnosis of carpal tunnel syndrome. Nonoperative measures such as bracing, time, activity modifications had been tried but disability and pain persisted. He also had a trigger finger of the right middle finger. I discussed carpal tunnel release combined with trigger release with the patient. I reviewed the risks of the procedure to include, but not limited to, bleeding, infection, pain, stiffness, incomplete release, damage to nerves or vessels, persistent numbness, recurrence. Despite these risks, the patient elected to proceed. Findings: There was tightened carpal tunnel. This was dilated and released successfully with the endoscopic with increased space within the tunnel. The antebrachial fascia was released proximally freeing the median nerve at the wrist. Procedure Description: Silvano was greeted in the preoperative holding area where the correct side was marleen ntified and marked. The consent was reviewed with the patient and signed. The history and physical was updated. All questions were answered. He was taken back to the operating room. The patient was placed into the supine position on the operating room table with the right arm on an arm board. A nonsterile tourniquet was placed high onto the arm. All bony prominences were well padded. Prophylactic antibiotics in the form of Cefazolin were administered. The right arm was then prepped with Chloraprep and draped in a standard fashion with stockinette and extremity drape. A timeout to confirm correct identity, side and site, procedure, allergies, anesthesia, and medical concerns was performed. The surgical site was marked in the volar wrist creases in line with the radial border of the fourth ray. This area was anesthetized with approximately 6cc of 1% Lidocaine. The limb was then exsanguinated with an Esmarch. The skin was incised with a 15 blade, approximately 1cm. The skin only was cut and the deeper tissue was dissected bluntly with a tenotomy scissor, avoiding passing nerve and venous structures. The fascia was penetrated and opened bluntly. A two-prong skin hook was placed under this proximal fascial edge. A series of hamate finders were used to identify and dilate the carpal tunnel. Synovial elevator was used to free synovial attachments to the underside of the transverse carpal ligament. My thumb was kept in the palm to gladys the distal extent of the carpal tunnel and correctly position the hand. The [employer] endoscope was inserted without difficulty and without resistance. Excellent visualization showed horizontally running fibers of the transverse carpal ligament (TCL). The distal extent of the TCL was visualized and the end of the scope palpated with the thumb. The blade was elevated and withdrawn from distal to proximal. The TCL was split into two flaps. The endoscope was reinserted to confirm complete release and any remnant ligament was incised. The scope was withdrawn and the proximal aspect of the carpal tunnel was grossly inspected and appeared release with the median nerve visible. The antebrachial fascia at the level of the wrist was then freed from the overlying skin and then the underlying median nerve with blunt dissection. This was transected longitudinally for about 3cm proximal to the wrist incision. The wound was then irrigated with easy flow of irrigant distally and proximally. The incision was closed with a single 4-0 Nylon suture. Attention was then turned to the trigger finger. The surgical site was anesthetized with 1% Lidocaine. I then made a longitudinal incision overlying the A1 sarah. The deep tissues were then bluntly dissected to expoe the A1 sarah. Neurovascular structures were retracted to fully expose the A1 sarah. Using a tenotomy scissor, I then released the A1 sarah. The tendons were removed from the wound and inspected. The wound was then irrigated with normal saline. The wound was closed with 4-0 Nylon. The wounds were dressed with Xeroform, Gauze, Kerlix and Raimundo. The tourniquet was deflated with the initial dressing and held with some pressure. Blood flow returned easily to all digits with capillary refill less than 2 seconds. The patient tolerated the procedure well and was returned to the Same Day Surgery area in a stable condition suffering no known complication.
--- NOTE | 2021-12-16 21:50 | W.PM.OP ---
Date of service: 12/15/21 Time of Service: 12:15 Operative Note Operative Note DATE OF PROCEDURE: 12/16/21 PRE-OP DIAGNOSIS: Right Hip Osteoarthritis POST-OP DIAGNOSIS: same PROCEDURE: Right Anterior Total Hip Arthroplasty with Intraoperative Navigation SURGEON: Cali Dominguez SUPPLIER QUALITY ENGINEER: Nichole Subramanian ANESTHESIA TYPE: Spinal Refer to Anesthesia Record PATHOLOGY: none sent TOURNIQUET TIME: 0 COMPLICATIONS: None Patient was transported to: PACU Patient's condition: stable Implants: 1. Depuy Lutz Acetabular Component, [48]mm 2. Depuy Acetabular Liner, [48x32]mm 3. Depuy Corail [Standard] Collared Femoral Stem, Size [11] 4. Depuy [Altrx Ceramic Femoral Head], Size [32]mm Indications: I have seen [NAME] in clinic for symptoms of hip arthritis, confirmed with radiographic findings. [NAME] has exhausted nonoperative methods and was having significant limitations in daily function and desired better function and less pain. I discussed the technical details of a hip replacement. I explained the risks of the procedure to include, but not limited to, bleeding, infection, pain, stiffness, fracture, damage to nerves and vessels, damage to muscles and tendons, loosening, instability, leg length inequality, need for repeat procedure, blood clot and cardiopulmonary demise. Despite these risks, [NAME] elected to proceed. Findings: There was significant signs of arthritis throughout the hip. [Details] Procedure Description: [NAME] was greeted in the preoperative holding area where the correct side was identified and marked. The consent was reviewed with the patient and signed. The history and physical was updated. All questions were answered. [NAME] was taken back to the operating room. [A spinal anesthestic was then administered. ]The feet were wrapped with cast padding and Coban and then placed into the boot liners and then into the boots. Care was taken to protect the skin and make sure the heels were fully down and the boots were stable. The patient was then positioned onto the HANA table. Both legs were held in a neutral position. SCDs were applied. The patient was then slid down onto a peroneal post. Prophylactic antibiotics in the form of [Cefazolin] were administered. [1g of Tranxemic Acid was given intravenously within 30 minutes of incision. ]The [right][left] leg was then prepped with Chloraprep and draped in a standard fashion. A second prep with Chloraprep was performed prior to placement of a shower-curtain type drape with Iodine impregnated skin protection. A timeout to confirm correct identity, side and site, procedure, allergies, anesthesia, and medical concerns was performed. An obliquely oriented incision was made starting lateral to the ASIS and running distal over the Tensor Fascia Vanna (TFL) muscle belly toward the fibular head, approximately 10cm. The skin and soft tissue was dissected sharply, through Pina?s fascia, and to the fascia of the TFL. With the fascia and superior border of the IT band identified, the fascia was incised with a new knife just above any perforators from the IT band. The TFL muscle belly was bluntly dissected away from the fascia and moved laterally. The fat between TFL and rectus was identified to ensure the dissection was not within the TFL. Blunt dissection created space between abductors and the capsule and retractor was placed over the lateral femoral neck. The fibers of the rectus femoris tendon were identified and these were freed from the anterior capsule. A second cobra retractor was placed around the medial femoral neck. The TFL was further retracted laterally to show the deep fascia. Careful dissection through this layer identified three main crossing vessels of the lateral femoral circumflex. These were cauterized in multiple locations and then cut without any noticeable bleeding. The TFL was further released bluntly from the deep fascia to expose anterior hip capsule and fat [The Justin orthopaedic retractor was then placed beneath the TFL and against sartorius and medial soft tissues to protect and retract the soft tissues.] A T-capsulotomy was then performed starting at the superior lateral acetabulum and moving distally to the intertrochanteric ridge. These capsular flaps were tagged with a No. 1 Ethibond and elevated from within. The capsular flaps were released to the shoulder of the lateral neck and to the lesser trochanter to give excellent visualization of the proximal femur. A neck osteotomy was performed using an oscillating saw based on preoperative templates. This cut started in the shoulder and of the lateral neck and exited medially. The saw was at all times directed medially to avoid injury to the greater trochanter. Gross traction was applied to the leg and the osteotomy opened. The femoral head was removed with a corkscrew, making sure to protect the TFL on its exit. Traction was released after head removal. This was measured on the back table to determine the starting reamer size. Portions of the rectus obscuring visualization were minimally elevated off the superior acetabulum. An anterior retractor was placed over the anterior wall between capsule and labrum and attached to the Gripper retraction system. The femur was rotated to 90 degrees and medial capsule was fully released until the lesser trochanter was palpable and visible; the femur was returned to 30 degrees. A posterior retractor was placed similarly between capsule and labrum. This provided excellent visualization. The contents of the cotyloid fossa were removed with electrocautery and the labrum was removed with a knife. [There was a notable floor osteophyte. ][There was significant chondromalacia of the superior acetabulum. ] Acetabular reaming began with a [44]mm reamer. This first reaming was directed anterior to posterior and medial to get down to the true floor. This was inspected and reamed until the true floor was reached. The anterior retractor was then released and entry and exit was provided by traction on the capsular flaps. I then reamed sequentially up to a [47]mm reamer where good fit was obtained. The larger reamers were oriented based on anatomical reference of the anterior and lateral bryant to ensure proper abduction and anteversion. Positioning and size was confirmed with the fluoroscopy. A [48]mm Depuy Lutz acetabular component was selected. [The acetabulum was reamed around the periphery with the selected acetabular size to prevent a rim fit.] The deep tissues were irrigated. The acetabular component was then impacted in a position of about 40-45 degrees of abduction and 15-20 degrees of anteversion, using the patient?s anatomy as the ultimate landmark. Fluoroscopy was used to confirm this. There was excellent director of casino of the acetabular component and the inserting handle was removed. [A primary acetabular screw was placed into the ilium by drilling through one of the holes in the acetabular component. This was measured and an approrpriately sized screw was placed with excellent purchase. It was checked not to be proud. ] [A second screw was placed in a similar fashion.] The acetabular liner, Depuy [48x32]mm polyethylene liner, was inserted and lined up with the tines of the acetabular component. There was no soft tissue interposition. The liner was then impacted into position and confirmed to be well-seated. A portion of the shaista-articular cocktail was then injected around the acetabulum into the capsule and periosteum. This cocktail consisted of 123mg of Ropivacaine, 0.25mg of Epinephrine, 0.04mg of Clonidine, and 15mg of Ketorolac, diluted to 50cc. The leg was rotated to 120 degrees. Any remaining medial capsule was released until the lesser trochanter was easily palpable. A retractor was placed medially. The lateral capsule was further released into the shoulder to allow access to the greater trochanter. A Charles retractor was placed over the greater trochanter which allowed the trochanter to flip in front of the capsule for excellent exposure. The leg was brought down into maximal extension and 20 degrees of adduction while ensuring there was no impingement on the acetabulum. Any remnant capsule within the trochanter was released. Piriformis and obturator externis were identified and protected. There was excellent access to the proximal femur. The lateral neck remnant was removed with a rongeur. A blunt canal probe was used to identify the canal and trajectory for later broaching. A box osteotome initiated the broach course. A small curved rasp and a curved curette were used to work laterally. Broaching then began with a size 8 Corail broach. This was inserted manually around the trochanter and into the canal before mallet blows. The broach was seated to [the neck cut level][a few millimeters below the cut level] based on the neck cut and the preoperative template. Sequential broaching was continued with the Car reviewscise pneumatic broaching device until a tight fit was obtained with good rotational control of the femur. A trial [standard] neck was inserted along with a [+5] trial head. The leg was brought out of extension and adduction and then reduced with traction and internal rotation. The leg was stable anteriorly in a position of 30 degrees of extension and 90 degrees of external rotation. Fluoroscopy was used to ensure there was no fracture and the stem was seated well. Leg lengths were checked with an AP pelvis and pelvic reference points. [[employer] navigation system was used to confirm appropriate positioning and leg length and offset. ][CHANGES] Once content with the desired offset and leg lengths, the leg was brought back into extension, external rotation and adduction. The periosteum and surrounding tissue was injected with remaining portion of the shaista-articular cocktail. The proximal femur was irrigated as well as the deep tissues. The Depuy Corail [standard] collared stem, size [11], was then manually inserted into the proximal femur making sure to control rotation. It was then malleted into position with light blows, giving breaks to allow bone expansion and decrease risk of fracture. The selected Depuy [Altrx Ceramic Head], size [32]mm, was then placed onto the clean and dry trunnion and secured with impaction onto the tapered fit. The leg was brought back out of extension and adduction and reduced with traction and internal rotation. Stability was confirmed with no shuck at 90 degrees of external rotation and 30 degrees of extension. No impingement through range of motion arc. Final x-ray images were obtained with fluoroscopy to confirm adequate positioning and no intraoperative fracture. [COMPLICATION] The deep tissues were thoroughly irrigated with Surgiphor, betadine solution. This was allowed to sit in the wound for 3 minutes before being thoroughly irrigated out with normal saline. The capsule was then reapproximated with the previously placed Ethibond sutures. The TFL fascia was finally closed with a No. 2 Stratafix, barbed suture. Deep tissues were then reapproximated with 0 Vicryl and a running 2-0 Vicryl. The skin was closed with a running 4-0 Monocryl in a subcuticular fashion. This was reinforced with skin glue. A Mepilex silver dressing was applied. At the end of the case, all counts were correct. [NAME] was transferred to the hospital bed without difficulty and suffering [no apparent complication]. [NAME] has a good prognosis. Physical therapy will start today and without restrictions, weight-bearing as tolerated. [Aspirin 81mg BID] will be used for DVT prophylaxis.
== END 2021-12-15 13:13 | disposition home or self-care (01) ==
PROVIDERS: PCP Family Medicine; Visit Provider Student in an Organized Health Care Education/Training Program
PROC: 01N54ZZ Release Median Nerve, Percutaneous Endoscopic Approach (ICD-10-PCS; CPT 29848; principal; 2021-12-15 12:30)
PROC: (CPT 26055; 2021-12-15 12:30)
DX: M65.331 Trigger finger, right middle finger (principal); G56.03 Carpal tunnel syndrome, bilateral upper limbs
CPT/HCPCS: 29848; 26055; J0690; J2250

== ENCOUNTER 2021-12-23 04:55 | Outpatient (CLI) | payer OTHER, SELFPAY ==
[2021-12-23 10:44] LABS: Anion Gap 8.4 mmol/L (3-11); BUN 7 mg/dL (7-18); CO2 28.6 mmol/L (21.0-32.0); CREATININE 1.4 mg/dL (0.70-1.30); Calcium 9.4 mg/dL (8.5-10.1); Chloride 93 mmol/L (98-107); Estimated GFR 60.85 (mL/min/1.73m2); Glucose 124 mg/dL (74-106); Potassium 4.6 mmol/L (3.5-5.1); Sodium 130 mmol/L (136-145)
== END 2021-12-23 04:56 | disposition home or self-care (01) ==
LOC: LBO 04:55
PROVIDERS: PCP Family Medicine; Visit Provider Family Medicine
DX: E03.9 Hypothyroidism, unspecified (principal); I10 Essential (primary) hypertension
CPT/HCPCS: 36415; 80048; 84439; 84443

== ENCOUNTER 2022-07-20 17:42 | Outpatient (CLI) | payer OTHER, SELFPAY ==
[2022-07-20 10:18] LABS: TSH (W/Ref FT4) 10.19 uIU/mL (0.36-3.74)
[2022-07-20 10:52] LABS: FREE T4 0.73 ng/dL (0.76-1.46)
[2022-07-20 18:27] LABS: PSA, Diagnostic 2.3 ng/mL (<=3.5)
== END 2022-07-20 17:43 | disposition home or self-care (01) ==
LOC: LBO 17:47
PROVIDERS: PCP Family Medicine; Visit Provider Family Medicine
DX: E03.9 Hypothyroidism, unspecified (principal); R97.20 Elevated prostate specific antigen [PSA]
CPT/HCPCS: 36415; 84153; 84439; 84443

== ENCOUNTER 2023-02-21 12:42 | Outpatient (CLI) | payer OTHER, SELFPAY ==
--- NOTE | 2023-02-21 11:00 | DI.RAD_ITS ---
Exam(s) XR SHOULDER RT COMPLETE 2+V EXAM: XR SHOULDER RT COMPLETE 2+V CLINICAL HISTORY: evaluation of shoulder. TECHNIQUE: 2D digital imaging was performed. COMPARISON: No exams were available for comparison FINDINGS: Two views. No evidence of fracture or dislocation. Subacromial space appears unremarkable and there are no calc ifications in the space. No significant narrowing of the glenohumeral joint. Small bony excrescence seen off the inferior aspect of the osseous glenoid of questionable significance. No other degenera tive changes. AC joint appears unremarkable. IMPRESSION: Subtle addition bone density at the inferior articular surface of the the osseous glenoid. May repre sent small osteophyte at this level. There is no osteophyte on the inferior articular surface of the humeral head. DATA REPOSITORY: RADIATION DOSE DELIVERED:
== END 2023-02-21 12:43 | disposition home or self-care (01) ==
LOC: DIORS 12:43
PROVIDERS: PCP Family Medicine; Visit Provider Student in an Organized Health Care Education/Training Program
DX: M25.511 Pain in right shoulder (principal)
CPT/HCPCS: 73030

== ENCOUNTER → 2023-02-27 02:12 | Outpatient (CLI) | payer OTHER, SELFPAY ==
--- NOTE | 2023-02-27 06:56 | DI.MRI_ITS ---
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 CONTRAST MATERIAL: IV Contrast: 13 mL of Magnevist contrast administered. COMPARISON: CT CT NECK W from 10/08/2021 FINDINGS: ORBITS: Bones: Postsurgical deformity of anterior left mandible. No adjacent mass or abnormal enhancement se en. Parotids/submandibular/thyroid gland: Normal. Lymphadenopathy: No enlarged lymph nodes.. Sinuses: Small amount of mucous retention at the floor of the left maxillary sinus. Soft tissues: 2.0 x 1.7 x 2.6 cm asymmetric area of thickening and enhancement deep to the left gilma ble near region of prior surgery, suspicious for recurrence. Mild artifact related to surgical clips . The epiglottis and vocal cords are within normal limits. Brain: Visualized portions of the brain are unremarkable. Cervical spine: Normal marrow signal. Minimal degenerative changes. Cervical cord shows normal sign al. IMPRESSION: Asymmetric tissue thickening and enhancement deep to the left mandible, suspicious for recurrence. DATA REPOSITORY:
[2023-02-27 08:40] LABS: Anion Gap 10.8 mmol/L (3-11); BUN 23 mg/dL (7-18); CO2 25.2 mmol/L (21.0-32.0); CREATININE 1.8 mg/dL (0.70-1.30); Calcium 9.2 mg/dL (8.5-10.1); Chloride 92 mmol/L (98-107); Estimated GFR 44.73 (mL/min/1.73m2); Glucose 90 mg/dL (74-106); Potassium 3.3 mmol/L (3.5-5.1); Sodium 128 mmol/L (136-145); TSH (W/Ref FT4) 4.88 uIU/mL (0.36-3.74)
[2023-02-27] MEDS: Normal Saline Flush 10 ML SYR IVP (08:43)
[2023-02-27] MEDS: Gadoterate meglumine 20 ML SYRINGE 13 ML IVP (08:44)
[2023-02-27 08:57] LABS: FREE T4 1.22 ng/dL (0.76-1.46)
== END ==
PROVIDERS: PCP Family Medicine; Visit Provider Family Medicine
DX: E03.9 Hypothyroidism, unspecified (principal); I10 Essential (primary) hypertension; C04.9 Malignant neoplasm of floor of mouth, unspecified; R22.0 Localized swelling, mass and lump, head
CPT/HCPCS: 80048; 70543; 84439; 84443

== ENCOUNTER → 2023-03-09 01:44 | Outpatient (CLI) | payer OTHER, SELFPAY ==
--- NOTE | 2023-03-09 06:30 | DI.RAD_ITS ---
Exam(s) RF JOINT INJ. FLUORO GUID RAD EXAM: RF JOINT INJ. FLUORO GUID RAD CLINICAL HISTORY: R SHOULDER PAIN,FLUORO GUIDED INJECTION,ARTHRITIS,m19.011. The Patient has had pe rsistent right shoulder pain. Noninvasive measures have been tried. To serve as both diagnostic and therapeutic, an injection under fluoroscopy was recommended. The risks of the procedure were discus sed with their Orthopedic provider and the patient elected to proceed. TECHNIQUE: 2D and realtime digital imaging was performed. CONTRAST MATERIAL: Water soluble contrast was utilized. COMPARISON: No exams were available for comparison FINDINGS: The Patient was greeted in the fluoroscopy room. The correct side was identified and the consent was reviewed with the patient and was signed. The patient was properly positioned on the fluoroscopy ta ble. The right shoulderwas then prepped with Chloraprep and draped. The right shoulder injection st arting point was identified by the bony landmarks and fluoroscopy. The skin and soft tissue in the t ract of the injection was anesthetized with 1% Lidocaine. A spinal needle was then inserted into the right shoulder joint at the level of the glenohumeral joint under fluoroscopic guidance. A small am ount of Omnipaque solution was injected to confirm intraarticular placement. Once confirmed, the rig ht shoulder was injected with 5cc of a solution containing 0.5% Bupivaine and 80 mg of Depo-Medrol. A bandaid was placed on the injection site. The patient tolerated the procedure well and left the de partment in good condition. IMPRESSION: Successful right shoulder injection. RADIATION DOSE DELIVERED: Ka,r=4.35 mGy
[2023-03-09] MEDS: Normal Saline - Diluent 50 ML VIAL IJ (09:10)
[2023-03-09] MEDS: Omnipaque 300 MG/ML 10 ML BTL IJ (09:11)
[2023-03-09] MEDS: Bupivacaine 0.5% Pres-Free 10 ML VIAL IJ (09:12)
[2023-03-09] MEDS: methylPREDNISolone ACETATE 80 MG/ML VIAL IM (09:13)
== END ==
PROVIDERS: PCP Family Medicine; Visit Provider Student in an Organized Health Care Education/Training Program
DX: M19.011 Primary osteoarthritis, right shoulder (principal); M25.511 Pain in right shoulder
CPT/HCPCS: 20610; 77002; J0665; J1040

== ENCOUNTER 2023-03-09 10:37 | Outpatient (REF) | payer OTHER, SELFPAY ==
[2023-03-09 10:40] LABS: Sodium, Urine 132 mmol/L
[2023-03-09 17:40] LABS: Osmolality, Urine 507 mOsm/kg (150-1150)
== END 2023-03-09 10:38 | disposition home or self-care (01) ==
LOC: LBN 10:37
PROVIDERS: PCP Family Medicine; Visit Provider Family Medicine
DX: E87.1 Hypo-osmolality and hyponatremia (principal); I10 Essential (primary) hypertension; E03.9 Hypothyroidism, unspecified
CPT/HCPCS: 83935; 84300

== ENCOUNTER → 2023-06-19 01:22 | Outpatient (CLI) | payer OTHER, SELFPAY ==
--- NOTE | 2023-06-19 08:00 | DI.MRI_ITS ---
Exam(s) MR UPPER JOINT RT WO EXAM: MR UPPER JOINT RT WO CLINICAL HISTORY: R SHOULDER PAIN,rt rotator cuff tear,m75.101. TECHNIQUE: Multiplanar multisequence MRI was performed. COMPARISON: Plain films 21 February 2023 FINDINGS: BONES: There is no fracture or contusion pattern. Degenerative cysts at the greater tuberosity. Cy sts in the glenoid. JOINTS:The acromioclavicular joint shows mild degenerative changes. The glenohumeral joint shows a l arge effusion. There is cysts of adjacent to the posterior labrum glenoid. TENDONS: Supraspinatus: Full-thickness tear with retraction. No significant muscle atrophy. Infraspinatus: Unremarkable. Subscapularis: Unremarkable. Teres Minor: Unremarkable. Biceps and [place]: Abnormal signal in biceps anchor. Abnormal signal and thickening and proximal bic eps tendon. The upper biceps tendon is subluxed medial. There is some fluid in the biceps tendon sh eath. There is a question of few tiny loose bodies. MUSCLES: Unremarkable. GLENOID LABRUM: Anterior labral tear. SOFT TISSUES: Unremarkable. OTHER: Subacromial and subdeltoid bursae . IMPRESSION: Full-thickness tear of the supraspinatus tendon with retraction. Partial tear of the superior long head of the biceps tendon with medial subluxation. Anterior labral tear. Degenerative cysts adjacent to the posterior glenoid. DATA REPOSITORY:
== END ==
PROVIDERS: PCP Family Medicine; Visit Provider Student in an Organized Health Care Education/Training Program
DX: M75.121 Complete rotator cuff tear or rupture of right shoulder, not specified as traumatic (principal)
CPT/HCPCS: 73221

== ENCOUNTER 2023-08-04 15:26 | Outpatient (REF) | payer OTHER, SELFPAY ==
[2023-08-04 15:39] LABS: Anion Gap 9.9 mmol/L (3-11); BUN 8 mg/dL (7-18); CO2 29.1 mmol/L (21.0-32.0); CREATININE 1.1 mg/dL (0.70-1.30); Calcium 9.1 mg/dL (8.5-10.1); Chloride 97 mmol/L (98-107); Estimated GFR 80.27 (mL/min/1.73m2); Glucose 77 mg/dL (74-106); Potassium 3.6 mmol/L (3.5-5.1); Sodium 136 mmol/L (136-145); TSH (W/Ref FT4) 4.19 uIU/mL (0.36-3.74)
[2023-08-04 15:59] LABS: FREE T4 0.86 ng/dL (0.76-1.46)
== END 2023-08-04 15:27 | disposition home or self-care (01) ==
LOC: LBN 15:26
PROVIDERS: PCP Family Medicine; Visit Provider Family Medicine
DX: I10 Essential (primary) hypertension (principal); E03.9 Hypothyroidism, unspecified
CPT/HCPCS: 80048; 84439; 84443

== ENCOUNTER 2023-12-05 11:22 | Outpatient (CLI) | payer OTHER, SELFPAY ==
[2023-12-05 10:18] LABS: Anion Gap 8.2 mmol/L (3-11); BUN 8 mg/dL (7-18); CO2 28.8 mmol/L (21.0-32.0); CREATININE 1.1 mg/dL (0.70-1.30); Calcium 9.2 mg/dL (8.5-10.1); Chloride 91 mmol/L (98-107); Estimated GFR 80.27 (mL/min/1.73m2); Glucose 79 mg/dL (74-106); Potassium 4.1 mmol/L (3.5-5.1); Sodium 128 mmol/L (136-145); TSH (W/Ref FT4) 1.99 uIU/mL (0.36-3.74)
== END 2023-12-05 11:23 ==
LOC: LBO 11:22
PROVIDERS: PCP Family Medicine; Visit Provider Family Medicine
DX: I10 Essential (primary) hypertension (principal); E03.9 Hypothyroidism, unspecified
CPT/HCPCS: 36415; 80048; 84443

== ENCOUNTER 2024-02-23 22:00 | Outpatient (REF) | payer OTHER, SELFPAY ==
[2024-02-23 22:24] LABS: ALT 32 U/L (16-63); AST 40 U/L (15-37); Alkaline Phosphatase 137 U/L (46-116); Anion Gap 9.6 mmol/L (3-11); BUN 6 mg/dL (7-18); Bilirubin, Total 0.31 mg/dL (0.2-1.0); CO2 26.4 mmol/L (21.0-32.0); Calcium 9.4 mg/dL (8.5-10.1); Chloride 94 mmol/L (98-107); Glucose 86 mg/dL (74-106); Potassium 4.7 mmol/L (3.5-5.1); Sodium 130 mmol/L (136-145); Total Protein 7.7 g/dL (6.4-8.2); Vitamin B12 755 pg/mL (193-986)
[2024-02-26 10:36] LABS: PSA, Screening 36.1 ng/mL (<=3.5)
== END 2024-02-23 22:01 | disposition home or self-care (01) ==
LOC: LBN 22:00
PROVIDERS: PCP Family Medicine; Visit Provider Family Medicine
DX: Z00.00 Encounter for general adult medical examination without abnormal findings (principal); E87.1 Hypo-osmolality and hyponatremia; Z12.5 Encounter for screening for malignant neoplasm of prostate; R97.20 Elevated prostate specific antigen [PSA]; E53.8 Deficiency of other specified B group vitamins
CPT/HCPCS: 80053; 84153; 82607

== ENCOUNTER 2024-03-07 12:56 | Outpatient (CLI) | payer OTHER, SELFPAY ==
[2024-03-07 18:58] LABS: PSA, Diagnostic 15.7 ng/mL (<=3.5)
== END 2024-03-07 12:57 | disposition home or self-care (01) ==
LOC: LBO 12:57
PROVIDERS: PCP Family Medicine; Visit Provider Nurse Practitioner Gerontology
DX: R97.20 Elevated prostate specific antigen [PSA] (principal)
CPT/HCPCS: 36415; 84153

== ENCOUNTER 2024-05-30 11:02 | Outpatient (REF) | payer OTHER, SELFPAY ==
--- NOTE | 2024-05-30 11:00 | PROST_PTH ---
PATIENT: Before,Gene H LOC: [facility] U#:[id number] AGE/SX: 54/M ROOM: RE05/30/[address]: Foster Lerner MD : [id number] BED: DIS: 05/30/2024 SPEC #: [id number] RECD: 05/30/24 12:58 STATUS: JOHN REQ #: [id number] LUPILLO: 05/30/24 11:[address]: Foster Lerner DEPT: Surgical Specimen RECD BY: Georgina Carballo ENTERED: 05/30/24 12:59 SP TYPE: PROST OTHR DR: Maritza Kang Tissues: 1 - PROSTATE NEEDLE BIOPSY 2 - PROSTATE NEEDLE BIOPSY 3 - PROSTATE NEEDLE BIOPSY 4 - PROSTATE NEEDLE BIOPSY 5 - PROSTATE NEEDLE BIOPSY 6 - PROSTATE NEEDLE BIOPSY 7 - PROSTATE NEEDLE BIOPSY 8 - PROSTATE NEEDLE BIOPSY 9 - PROSTATE NEEDLE BIOPSY 10 - PROSTATE NEEDLE BIOPSY 11 - PROSTATE NEEDLE BIOPSY 12 - PROSTATE NEEDLE BIOPSY Procedures: GROSS AND MICRO LEVEL 4 IMMUNOPEROXIDASE STAIN Comments: [id number]
== END 2024-05-30 11:03 | disposition home or self-care (01) ==
LOC: LBN 11:02
PROVIDERS: PCP Family Medicine; Visit Provider Urology
DX: Z80.42 Family history of malignant neoplasm of prostate; C61 Malignant neoplasm of prostate
CPT/HCPCS: 88305; 88361

== ENCOUNTER 2024-08-15 10:17 | Outpatient (CLI) | payer OTHER, SELFPAY | END 2024-08-15 10:18 | disposition home or self-care (01) | PROVIDERS: PCP Family Medicine; Visit Provider Radiology Radiation Oncology | DX: C61 Malignant neoplasm of prostate (principal) | CPT/HCPCS: 36415 ==

== ENCOUNTER 2025-01-20 09:19 | Outpatient (CLI) | payer OTHER, SELFPAY ==
[2025-01-20 14:43] LABS: TSH (W/Ref FT4) 2.77 uIU/mL (0.55-4.78)
== END 2025-01-20 09:20 | disposition home or self-care (01) ==
LOC: LOS 09:19
PROVIDERS: PCP Family Medicine; Visit Provider Family Medicine
DX: E03.9 Hypothyroidism, unspecified (principal)
CPT/HCPCS: 36415; 84443